=== PATIENT | female | born 1985 | race Caucasian/White ===

== ENCOUNTER 2017-07-15 21:15 | Emergency (ER) | payer SELFPAY ==
[~2017-07-15] VITALS: Ht 172.7 cm; Wt 68.0 kg
[~2017-07-15 21:15] MED LIST: LITH150C PO; METH40TA PO; SERO25TA PO
[2017-07-15 21:26] VITALS: BP 160/71; PULSE 97; RESP 18; TEMP 98.2; O2SAT 100
[2017-07-16] MEDS ORDERED: PENI500T PO (02:06)
== END 2017-07-16 00:05 | disposition left against medical advice (07) ==
LOC: NED 21:15
DX: Z53.21 Procedure and treatment not carried out due to patient leaving prior to being seen by health care provider (principal)
CPT/HCPCS: 99281

== ENCOUNTER 2017-07-16 00:33 | Emergency (ER) | payer SELFPAY ==
[~2017-07-16] VITALS: Ht 172.7 cm; Wt 68.0 kg
[2017-07-16 00:46] VITALS: BP 167/78; PULSE 93; RESP 18; TEMP 98.4; O2SAT 100
[2017-07-16 01:05] VITALS: BP 157/81; PULSE 86; RESP 18; TEMP 98.3; O2SAT 99
[2017-07-16] MEDS ORDERED: PENI500T PO (02:06)
--- NOTE | 2017-07-16 02:07 | PD ---
HPI Chief Complaint: Oral / Dental Pain or Problem Time Seen by Provider: 02:05 Travel History International Travel<30 days: No Contact w/Intl Traveler<30days: No Traveled to known affect area: No History of Present Illness HPI 32 year old female with left upper dentition pain and swelling; "I want and antibiotic and to leave". PFSH Past Medical History Narrative Medical bipolar; nursing notes reviewed ADHD: Yes Bipolar Disorder: Yes Diabetes: No Psychiatric: Yes Tetanus Vaccination: > 5 Years Influenza Vaccination: No ?: Not LMP: 07/16/2017 Past Surgical History Tonsillectomy: Yes (AND ADENOIDS) Social History Alcohol Use: No Tobacco Use: Yes (1 PPD) Substance Use: Yes Allergies-Medications (Allergen,Severity, Reaction): Coded Allergies: codeine (Verified Allergy, Intermediate, 07/16/17) Reported Meds & Prescriptions Reported Meds & Active Scripts Active Penicillin V Potassium 500 Mg Tab 500 Mg PO Q6H 7 Days Reported Methadone (Methadone HCl) 40 Mg Tab 80 Mg PO DAILY [place] Carbonate 150 Mg Cap 150 Mg PO QID Seroquel (Quetiapine Fumarate) 25 Mg Tab 25 Mg PO BID Review of Systems Except as stated in HPI: all other systems reviewed are Neg Physical Exam Narrative GENERAL: well developed female in mild distress SKIN: Warm and dry. HEAD: Normocephalic. EYES: No scleral icterus. No injection or drainage. ENT: airway patent; mucous membranes moist; poor dentition with multiple missing teeth and dental caries, mild upper gingival edema without fluctulnce NECK: Supple, trachea midline. No JVD or lymphadenopathy. CARDIOVASCULAR: Regular rate and rhythm without murmurs, gallops, or rubs. RESPIRATORY: Breath sounds equal bilaterally. No accessory muscle use. Data Data Last Documented VS Vital Signs Date Time Temp Pulse Resp B/P (MAP) Pulse Ox O2 Delivery O2 Flow Rate FiO2 07/16/17 02:26 07/16/17 01:05 98.3 86 18 99 Room Air Orders Orders Penicillin V Potassium (Veetids) (07/16/17 02:15) Ed Discharge Order (07/16/17 02:12) MDM Medical Decision Making Medical Screen Exam Complete: Yes Emergency Medical Condition: Yes Medical Record Reviewed: Yes Differential Diagnosis dentalgia, dental abscess, cellulitis Narrative Course early dental abscess--given first dose oral antibiotic --stable for outpatient dental follow up Diagnosis Primary Impression: Dentalgia Additional Impression: Dental abscess Referrals: Dentist call for appointment Patient Instructions: General Instructions Additional Instructions: Complete course of antibiotic as prescribed Take acetaminophen/Tylenol every 4-6 hours as needed for pain or for fever 100.4 F or greater Take 600 mg ibuprofen/Advil/Motrin every 6 hours for pain associated with inflammation or for fever 100.4F or greater Follow-up with dentist Return to the emergency department for any concerns or change in condition Med/Other Pt SpecificInfo: Prescription(s) given Scripts Penicillin V Potassium (Penicillin V Potassium) 500 Mg Tab 500 MG PO Q6H for Infection for 7 Days, #28 TAB 0 Refills Prov: Nicole Oliveira MD 07/16/17 Disposition: 01 DISCHARGE HOME Condition: Stable Nicole Oliveira MD Jul 16, 2017 02:07
[2017-07-16] MEDS ORDERED: PENICILLIN V POTASSIUM 500 MG TAB PO ONE (02:15)
== END 2017-07-16 02:27 | disposition home or self-care (01) ==
LOC: NEPC 00:33
DX: K04.7 Periapical abscess without sinus (principal); F90.9 Attention-deficit hyperactivity disorder, unspecified type; F31.9 Bipolar disorder, unspecified; F17.200 Nicotine dependence, unspecified, uncomplicated
CPT/HCPCS: 99283